=== PATIENT | male | born 1955 ===

== ENCOUNTER 2020-03-29 12:12 | Emergency (ER) | payer OTHER ==
[~2020-03-29] VITALS: Ht 182.9 cm; Wt 72.6 kg
== END 2020-03-29 22:10 | disposition home or self-care (01) ==
LOC: ER 12:12 → CPU-OBS 13:18 → ER 13:18
DX: R00.2 Palpitations (principal); R53.1 Weakness; F12.129 Cannabis abuse with intoxication, unspecified; Z03.818 Encounter for observation for suspected exposure to other biological agents ruled out
CPT/HCPCS: G0378; G0379; 93005